=== PATIENT | female | born 1950 | race African-American/Black ===

== ENCOUNTER 2017-05-19 12:11 | Emergency (ER) | payer MEDICARE, OTHER ==
[2017-05-19 12:26] VITALS: BP 143/98
--- NOTE | 2017-05-19 12:58 | ER Document Report ---
HPI - HPI Pain Level: 4 Notes: Patient is a 66-year-old female presents the ED complaining of mid back pain status post fall 2 weeks ago. Patient states that she was seen by an emergency department in [place] and was given muscle relaxers, but that does not have seem to help. Patient states that they did not do any imaging and would like imaging today. Patient states that the pain is primarily between her shoulder blades and it is a burning/soreness to the area. Patient states that she is still able to perform her ADLs without any difficulties. The pain does not radiate. She still eating and drinking without any problems. Denies any loss of control of bowel or bladder, urinary retention, numbness/tingling, saddle anesthesia. Patient denies any drug allergies. She does take medicines daily for hypertension and high cholesterol. Denies diabetes or any injections into her back. Denies any smoking or drug use. Denies any recent illness, travel, sick contacts. Denies any fever, headache, neck stiffness/pain, URI, sore throat, chest pain, palpitations, syncope, cough, wheeze, shortness of breath, abdominal pain, nausea/vomiting/diarrhea, dysuria, hematuria, flank pain, muscle paralysis/weakness, or rash. - ROS Notes: REVIEW OF SYSTEMS: CONSTITUTIONAL : Denies fever, chills, or sweats. Denies recent illness. EENT: Denies eye, ear, throat, or mouth pain or symptoms. Denies nasal or sinus congestion or discharge. Denies throat, tongue, or mouth swelling or difficulty swallowing. CARDIOVASCULAR: Denies chest pain. Denies palpitations or racing or irregular heart beat. Denies ankle edema. RESPIRATORY: Denies cough, cold, or chest congestion. Denies shortness of breath, difficulty breathing, or wheezing. GASTROINTESTINAL: Denies abdominal pain or distention. Denies nausea, vomiting , or diarrhea. Denies blood in vomitus, stools, or per rectum. Denies black, tarry stools. Denies constipation. GENITOURINARY: Denies difficulty urinating, painful urination, burning, frequency, blood in urine, or discharge. MUSCULOSKELETAL: see hpi SKIN: Denies rash, lesions or sores. NEUROLOGICAL: Denies confusion or altered mental status. Denies passing out or loss of consciousness. Denies dizziness or lightheadedness. Denies headache. Denies weakness or paralysis or loss of use of either side. Denies problems with gait or speech. Denies sensory loss, numbness, or tingling. Denies seizures. PSYCHIATRIC: Denies anxiety or stress. Denies depression, suicidal ideation, or homicidal ideation. ALL OTHER SYSTEMS REVIEWED AND NEGATIVE. Dictation was performed using [employer] voice recognition software - DERM Skin Color: Normal Past Medical History - Social History Smoking Status: Never Smoker Family History: Reviewed & Not Pertinent Patient has suicidal ideation: No Patient has homicidal ideation: No Renal/ Medical History: Denies: Hx Peritoneal Dialysis Vertical Provider Document - CONSTITUTIONAL Agree With Documented VS: Yes Notes: PHYSICAL EXAMINATION: GENERAL: Well-appearing, well-nourished and in no acute distress. NECK: Normal range of motion, supple without lymphadenopathy. No rigidity/ meningismus. Spurling negative. LUNGS: Breath sounds clear to auscultation bilaterally and equal. No wheezes rales or rhonchi. HEART: Regular rate and rhythm without murmurs, rubs, gallops. ABDOMEN: Soft, nontender, nondistended abdomen. No guarding, no rebound. No masses appreciated. Normal bowel sounds present. No CVA tenderness bilaterally. No pulsatile mass Musculoskeletal: Extremities b/l: FROM to passive/active. Strength 5+/5. No focal deficits noted Back: FROM to passive/active. Strength 5+/5. + mild tenderness near T6 +/- midline and left paraspinal. No deformities or step-offs. Extremities: No cyanosis, clubbing, or edema b/l. Peripheral pulses 2+. Capillary refill less than 2 seconds. NEUROLOGICAL: Normal speech, normal gait. Normal sensory, motor exams. Reflexes 2+ b/l. PSYCH: Normal mood, normal affect. SKIN: Warm, Dry, normal turgor, no rashes or lesions noted. - INFECTION CONTROL TRAVEL OUTSIDE OF THE [place] IN LAST 30 DAYS: No - RESPIRATORY O2 Sat by Pulse Oximetry: 96 Course - Re-evaluation Re-evalutation: 05/19/17 14:00 Patient is an afebrile, well-hydrated, 66-year-old female who presents the ED with thoracic back pain, suspect inflammatory based on H&P today. Vitals are stable. PE otherwise unremarkable for any focal neurological deficits. T- spine x-ray was unremarkable for any acute fracture dislocation. Reviewed stretches and exercises patient. Solu-Medrol 125 mg given IM today. I will send her home with Celebrex and Voltaren to take as directed. She may continue to use the muscle relaxer that she received from the [place] ED as needed. Conservative measures otherwise for symptoms. Reviewed with patient that she will need to recheck with her PCM this week for further evaluation and possible referral to orthopedic, physical therapy, chiropractic. Return to the ED with any worsening/concerning symptoms otherwise as reviewed in discharge. Patient is in agreement. - Vital Signs Vital signs: Temp Pulse Resp BP Pulse Ox 98.5 F 85 20 143/98 H 96 05/19/17 12:22 05/19/17 12:22 05/19/17 12:22 05/19/17 12:22 05/19/17 12:22 Discharge - Discharge Clinical Impression: Thoracic back pain Qualifiers: Chronicity: acute Back pain laterality: unspecified Qualified Code(s): M54.6 - Pain in thoracic spine Condition: Stable Instructions: Ice Packs ([facility]), Muscle Strain ([facility]), Warm Packs ([facility]), Stretching Exercises for the Back ([facility]), Upper Back Strain ([facility]) Additional Instructions: Rest, Ice Tylenol/ibuprofen as needed Light stretches daily Strength exercises as able Moist heat and massage may help F/u with your PCP in 2-3 days for a recheck Consider consult(s) with Orthopedics, physical therapy, chiropractics for ongoing/worsening symptoms Return to the ED with any worsening symptoms and/or development of fever, headache, chest pain, palpitations, syncope, shortness of breath, trouble breathing, abdominal pain, n/v/d, blood in stool/urine, loss of control of bowel /bladder, urinary retention, muscle weakness/paralysis, numbness/tingling, or other worsening symptoms that are concerning to you. Prescriptions: Celecoxib [Celebrex 100 mg Capsule] 100 mg PO BID #30 capsule Diclofenac Sodium [Voltaren] 4 gm TP QID PRN #100 gel..gm. PRN Reason: Forms: Elevated Blood Pressure Referrals: [facility] [Provider Group] - Follow up as needed GRACIE HAMMER [Primary Care Provider] - Follow up in 1 week
[2017-05-19] MEDS ORDERED: METHYLPREDNISOLONE INJ 125 MG/2 ML SDV IM ONE (13:02)
--- NOTE | 2017-05-19 14:12 | RADIOLOGY REPORT (SQ) ---
EXAM DESCRIPTION: T SPINE AP/LAT COMPLETED DATE/TIME: 05/19/2017 1:48 pm REASON FOR STUDY: pain near T6 +/- s/p fall 2 weeks ago COMPARISON: None. NUMBER OF VIEWS: Two views. TECHNIQUE: AP and lateral radiographic images acquired of the thoracic spine. LIMITATIONS: Poor visualization of the mid thoracic spine on the lateral views FINDINGS: MINERALIZATION: Normal. ALIGNMENT: Mild scoliosis convex to the right. VERTEBRAE: No fracture or bone lesion. Maintained height, normal segmentation. DISCS: Moderate degenerative disc disease in the mid thoracic spine. HARDWARE: None in the spine. MEDIASTINUM AND SOFT TISSUES: Normal heart size and aortic contour. No soft tissue abnormality. VISUALIZED LUNG AUGUSTINE: Clear. OTHER: No other significant finding. IMPRESSION: 1. No definite fracture although the mid thoracic spine is poorly visualized on the lat eral views. If clinically indicated CT scan could be performed. 2. Moderate degenerative changes and moderate scoliosis. TECHNICAL DOCUMENTATION: JOB ID: [id number] [email or web address]- All Rights Reserved
== END 2017-05-19 14:31 | disposition home or self-care (01) ==
LOC: ER 12:11
DX: M54.6 Pain in thoracic spine (principal); W19.XXXA Unspecified fall, initial encounter
CPT/HCPCS: 99283; 96372; 72070; J2930

== ENCOUNTER → 2017-05-23 | Outpatient (CLI) | payer MEDICARE ==
--- NOTE | 2017-05-23 11:56 | RADIOLOGY REPORT (SQ) ---
EXAM DESCRIPTION: L SPINE FLEX/EXT ONLY COMPLETED DATE/TIME: 05/23/2017 11:23 am REASON FOR STUDY: SPONDYLOLISTHESIS, LUMBAR REGION (M43.16) M43.16 SPONDYLOLISTHESIS, LUMBAR REGION COMPARISON: Lumbar spine films dated September 2007 NUMBER OF VIEWS: Two views TECHNIQUE: Lateral flexion and extension views LIMITATIONS: None. FINDINGS: MINERALIZATION: Normal. SEGMENTATION: Normal. No transitional anatomy. ALIGNMENT: There is minimal anterolisthesis of L4 in relation to L 5 on the previous study. FLEXION/EXTENSION: There is minimal anterolisthesis of L 4 in relation L5 on the extended view which appears to increase in the flexed position. VERTEBRAE: Maintained height. No fracture or worrisome bone lesion. DISCS: There is decrease in the L4-L5 disc space height which was present on the previous study. POSTERIOR ELEMENTS: Pedicles and facets are intact. No pars defect or posterior arch defects. HARDWARE: None in the spine. OTHER: No other significant finding. IMPRESSION: Degenerative changes as noted above There is minimal anterolisthesis of L 4 in relation to L 5 on the extended view which appears to incr ease in the flexed position TECHNICAL DOCUMENTATION: JOB ID: [id number] [employer]- All Rights Reserved
--- NOTE | 2017-05-23 19:32 | RADIOLOGY REPORT (SQ) ---
EXAM DESCRIPTION: SPINE SINGLE VIEW COMPLETED DATE/TIME: 05/23/2017 11:23 am REASON FOR STUDY: SPONDYLOLISTHESIS LUMBAR REGION (M43.16) M43.16 SPONDYLOLISTHESIS, LUMBAR REGION COMPARISON: None. NUMBER OF VIEWS: One view. TECHNIQUE: A frontal radiographic image acquired of the lumbar spine. LIMITATIONS: None. FINDINGS: MINERALIZATION: Normal. SEGMENTATION: Normal. No transitional anatomy. ALIGNMENT: Normal. VERTEBRAE: Maintained height. No fracture or worrisome bone lesion. DISCS: Preserved height. No significant osteophytes or end plate irregularity. HARDWARE: None in the spine. PARASPINAL SOFT TISSUES: Normal. PELVIS: Intact as visualized. No fractures or worrisome bone lesions. SI joints intact. OTHER: No other significant finding. IMPRESSION: NO SIGNIFICANT FINDING ON THE FRONTAL VIEW OF THE LUMBAR SPINE. ADDITIONAL LATERAL FLEX ION AND EXTENSION IMAGES ARE REPORTED SEPARATELY. TECHNICAL DOCUMENTATION: JOB ID: [id number] [employer]- All Rights Reserved
== END ==
LOC: RAD 10:55
PROVIDERS: ATTEND Specialist
DX: M43.16 Spondylolisthesis, lumbar region (principal)
CPT/HCPCS: 72020; 72120

== ENCOUNTER 2019-05-20 11:06 | Day surgery (SDC) | payer MEDICARE ==
[~2019-05-20 11:06] MED LIST: BUPIVACAINE HCL 0.75% INJ/PF (7.5 MG/1 ML) 10 ML SDV OS PRN; CHONDR SU A NA/HYALUR INTRAOC KIT (SURGICARE) ONE; EPINEPHRINE INJ/PF 1 MG/1 ML AMPULE ONE; LIDOCAINE 1%/PHENYLEPHRINE 1.5% 1 ML VIAL ONE; MIDAZOLAM 2 MG/2 ML INJ ONE; TETRACAINE HCL 0.5% OPH SOLN 0.6 ML DROPERETTE OS PRN; TRYPAN BLUE 0.06 % OPH SOLN 0.5 ML DISP.SYRIN ONE
[2019-05-20] MEDS: KETOROLAC TROMETHAMINE 0.45% 4 DROP/0.4 ML DROPERETTE OS PRN ×2 (12:14→12:34)
[2019-05-20] MEDS: TETRACAINE HCL 0.5% OPH SOLN 4 ML OS PRN ×2 (12:14→12:41)
[2019-05-20] MEDS: BESIFLOXACIN HCL 0.6% OPH SUSP 5 ML BOTTLE OS PRN ×4 (12:14→13:00)
[2019-05-20] MEDS: TROPICAMIDE 1% OPH SOLN 3 ML OS PRN ×3 (12:14→12:34)
[2019-05-20] MEDS: CYCLOPENTOLATE 0.2%/PHENYLEPHRINE 1% OPH SOLN 2 ML OS PRN ×3 (12:14→12:34)
[2019-05-20] MEDS: DORZOLAMIDE HCL 2%/TIMOLOL MALEAT 0.5% OPH SOLN 10 ML OS PRN ×2 (13:00)
--- NOTE | 2019-05-20 19:20 | [facility] OPERATIVE REPORT E ---
[facility] Operative Report NAME: CUCA SCHMID AGE: 68Y DATE OF SURGERY: 05/20/2019 ROOM: PREOPERATIVE DIAGNOSES: 1. CATARACT LEFT EYE. 2. CORNEAL SCARRING OF THE LEFT EYE. POSTOPERATIVE DIAGNOSES: 1. CATARACT LEFT EYE. 2. CORNEAL SCARRING OF THE LEFT EYE. OPERATION: Complex cataract extraction with the use of Trypan blue dye due to corneal scarring, which restricted the view and the red reflex. SURGEON: FARHAN BAILEY M.D. ANESTHESIA: TOPICAL. COMPLICATIONS: None. ESTIMATED BLOOD LOSS: None. PROCEDURE: After obtaining appropriate consent, the patient left eye was prepped and draped in sterile fashion as well as the surgeon in a sterile manner, and the cataract surgery was started. First, the paracentesis blade was used to make a small side-port incision. Viscoelastic was used to inflate the anterior chamber. Next a 2.4 mm incision was made using a 2.4 mm keratome. At this point, the pupil was less than 4.5 mm and was very miotic. In order to complete the capsulorhexis, a Malyugin ring was inserted and found to be in excellent position to help stabilize the pupil. Following this, a continuous capsulorhexis was made using a cystitome and Utrata forceps. Following this, hydrodissection was carried out to make the lens fully loose and mobile, and it was rotated 90 degrees. Following this, a divide and conquer technique was used to phacoemulsify the lens with a CDE of approximately 4.46. The remaining cortex was removed with irrigation/aspiration. Provisc was instilled into the capsular bag to inflate the bag. A SN60WF lens of 19.5 diopters was placed. The remaining viscoelastic material was removed with irrigation/aspiration. After this the Malyugin ring was removed. Following this, the incision was found to be watertight. Besivance was instilled into the eye and a protective shield was placed over the eye. The patient returned to the postoperative recovery in stable condition. This was a complex case due to the fact that the Malyugin ring was used due to poor pupillary dilation of less than or equal to 4 mm. Prior to making the capsulorrhexis, Trypan blue dye was used to stain the anterior capsule. It was difficult to visualize the anterior capsule with a poor red reflex due to significant corneal scarring. DICTATING PHYSICIAN: FARHAN BAILEY M.D. [id number] PHY#: [id number] ID: [id number] JOB#: [id number] ACCT: [id number] cc:FARHAN BAILEY M.D. >
--- NOTE | 2019-05-20 19:25 | [facility] DISCHARGE SUMMARY E ---
[facility] Discharge Summary NAME: CUCA SCHMID AGE: 68Y ADMITTED: 05/20/2019 DISCHARGED: This is a 68-year-old female who underwent complex cataract extraction with use of Trypan blue dye. DIAGNOSES: 1. CATARACT LEFT EYE. 2. DIFFUSE CORNEAL SCARRING. PROCEDURE: The patient underwent surgery because she was having trouble seeing road signs and words on the television. She should be on a regular diet. No bending at the waist and no heavy lifting. She should use her Besivance, Ilevro, and Durezol at 3:00 p.m. and 8:00 p.m. and sleep with a rigid shield. I will see her for her 1-day postop tomorrow. DICTATING PHYSICIAN: FARHAN BAILEY M.D. [id number] PHY#: [id number] ID: [id number] JOB#: [id number] ACCT: [id number] cc:FARHAN BAILEY M.D. >
[2019-05-21] MEDS ORDERED: TETRACAINE HCL 0.5% OPH SOLN 0.6 ML DROPERETTE OS PRN ×2 (05:00)
== END 2019-05-20 13:55 | disposition home or self-care (01) ==
LOC: SC 11:06
PROVIDERS: ATTEND Internal Medicine
DX: H25.89 Other age-related cataract (principal); H17.89 Other corneal scars and opacities; I10 Essential (primary) hypertension; Z86.73 Personal history of transient ischemic attack (TIA), and cerebral infarction without residual deficits; Z87.891 Personal history of nicotine dependence; E66.9 Obesity, unspecified
CPT/HCPCS: 66982; 00142; V2632; J2250; J3490 ×2; A9270; J0171; J2370; 142

== ENCOUNTER 2019-06-24 09:53 | Day surgery (SDC) | payer MEDICARE ==
[~2019-06-24 09:53] MED LIST changes: -BUPIVACAINE HCL 0.75% INJ/PF (7.5 MG/1 ML) 10 ML SDV OS PRN; +FENTANYL CITRATE INJ/PF 100 MCG/2 ML AMPUL ONE; +KETOROLAC TROMETHAMINE 0.45% 4 DROP/0.4 ML DROPERETTE OD PRN; -TETRACAINE HCL 0.5% OPH SOLN 0.6 ML DROPERETTE OS PRN; -TRYPAN BLUE 0.06 % OPH SOLN 0.5 ML DISP.SYRIN ONE
[2019-06-24] MEDS: TETRACAINE HCL 0.5% OPH SOLN 4 ML OD PRN ×3 (11:06→11:48)
[2019-06-24] MEDS: BESIFLOXACIN HCL 0.6% OPH SUSP 5 ML BOTTLE OD PRN ×4 (11:06→12:09)
[2019-06-24] MEDS: CYCLOPENTOLATE 0.2%/PHENYLEPHRINE 1% OPH SOLN 2 ML OD PRN ×3 (11:06→11:26)
[2019-06-24] MEDS: TROPICAMIDE 1% OPH SOLN 3 ML OD PRN ×3 (11:06→11:26)
[2019-06-24] MEDS: DORZOLAMIDE HCL 2%/TIMOLOL MALEAT 0.5% OPH SOLN 10 ML OD PRN ×2 (12:01→12:09)
--- NOTE | 2019-06-24 13:39 | Operative Report ---
Operative Report-[facility] Operative Report: DATE OF SURGERY: 06/24/2019 PREOPERATIVE DIAGNOSIS: Cataract, right eye POSTOPERATIVE DIAGNOSIS: Cataract, right eye OPERATION: Cataract extraction with insertion of an IOL of the right eye. Intraocular Lens Model: [23.3ib04nz] SURGEON: Geoff Gray MD ANESTHESIA: Topical PROCEDURE: After obtaining appropriate consent, the patient's right eye was prepped and draped in a sterile fashion as well as the surgeon in the sterile manner and cataract surgery was started. First a paracentesis blade was used to make a side-port incision. Viscoelastic was used to inflate the anterior chamber. Next a 2.4 mm incision was made with a 2.4 mm blade, clear corneal temporarily. A continuous capsulorrhexis was made using a cystotome and Utrata forceps. Following this hydrodissection was carried out to make the swetha fully loose and mobile and it was rotated. Following this, a divide and conquer technique was used to phacoemulsify the swetha. The remaining cortex was removed with an irrigation/aspiration. Provisc was instilled into the capsular bag to inflate the bag. The intraocular lens was placed. The remaining viscoelastic material was removed with irrigation/aspiration. Following this, the incision was found to be watertight. Besivance and Cosopt was instilled into the eye and a protective shield was placed over the eye. The patient was reurned to the postoperative recovery in a stable condition.
--- NOTE | 2019-06-24 13:40 | PDOC DISCHARGE SUMMARY ---
Discharge Summary-[facility] Discharge Summary: DATE OF SURGERY: 06/24/2019 PREOPERATIVE DIAGNOSIS: Cataract, right eye POSTOPERATIVE DIAGNOSIS: Cataract, right eye OPERATION: Cataract extraction with insertion of an IOL of the right eye. SURGEON: Geoff Gray MD ANESTHESIA: Topical The patient underwent surgery because they are having an increase in glare due to headlights. They're to be on a regular diet, no bending at their waist, and no heavy lifting. They should use the prescribed antibiotic, NSAID, and steroid at 3 PM and 8 PM. They should sleep with a rigid shield and I will see them for 1 day postoperative tomorrow.
== END 2019-06-24 12:50 | disposition home or self-care (01) ==
LOC: SC 09:53
PROVIDERS: ATTEND Internal Medicine
DX: H25.89 Other age-related cataract (principal); Z96.1 Presence of intraocular lens; H17.89 Other corneal scars and opacities; I10 Essential (primary) hypertension; I69.898 Other sequelae of other cerebrovascular disease; H53.9 Unspecified visual disturbance; D64.9 Anemia, unspecified; Z79.899 Other long term (current) drug therapy; Z79.82 Long term (current) use of aspirin
CPT/HCPCS: 66984; 00142; V2632; J2250; J3490 ×2; A9270; J0171; J3010; J2370; 142

== ENCOUNTER → 2019-10-06 | Outpatient (CLI) | payer MEDICARE | LOC: LAB 17:12 | PROVIDERS: ATTEND Family Medicine | DX: H02.821 Cysts of right upper eyelid (principal) | CPT/HCPCS: 88305 ==